=== PATIENT | female | born 1960 | race Caucasian/White ===

== ENCOUNTER → 2016-12-11 | Outpatient (CLI) | payer MEDICARE, OTHER ==
[~2016-12-11] VITALS: Ht 157.5 cm; Wt 64.4 kg
== END ==
LOC: OPSV 09:00
DX: M81.0 Age-related osteoporosis without current pathological fracture (principal)
CPT/HCPCS: 96365; J3489; J7050

== ENCOUNTER 2021-07-03 10:00 | Emergency (ER) | payer MEDICARE, OTHER ==
[2021-07-03 11:14] LABS: HEMOGLOBIN 16.7 gm/dl (12.3-15.3); RED BLOOD COUNT 5.13 M/UL (4.00-5.10); WHITE BLOOD COUNT 9.5 K/UL (4.5-11.0)
[2021-07-03 11:37] LABS: BUN/CREATININE RATIO 11 (0-10)
== END 2021-07-04 10:32 | disposition other institution (70) ==
LOC: ER1 10:00
PROVIDERS: Emergency Medicine
DX: F23 Brief psychotic disorder (principal); R51.9 Headache, unspecified; I10 Essential (primary) hypertension; F17.200 Nicotine dependence, unspecified, uncomplicated; Z20.822 Contact with and (suspected) exposure to COVID-19
CPT/HCPCS: 70450; 71045; 80053; 80307; 81001; 82550; 82553; 83605; 83874; 84484; 85025; 85652; 87040; 93005; 99285; U0002